=== PATIENT | male | born 1965 | race Caucasian/White ===

== ENCOUNTER → 2018-08-26 | Outpatient (CLI) | payer OTHER ==
--- NOTE | 2018-08-26 13:46 | REP ---
Chest two views HISTORY: Cough Comparison: 07/20/2015 There is elevation of the left hemidiaphragm. Linear density is present in the left lower lobe consistent with scar. The right lung is clear. The heart is normal in size. The pulmonary vasculature is normal in appearance. The bony structure is intact. IMPRESSION: No acute disease. Electronically Signed by Sergio Duarte MD 08/26/2018 01:37 P
== END ==
LOC: M LRY 13:20
PROVIDERS: ATTEND Nurse Practitioner Family
DX: R05 Cough (principal)
CPT/HCPCS: 71046; G0463

== ENCOUNTER → 2020-01-21 | Outpatient (CLI) | payer OTHER ==
--- NOTE | 2020-03-06 11:25 | REP ---
HISTORY: Kidney stone. COMPARISON: CT study 02/22/2012. 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 The left hemidiaphragm is quite elevated, somewhat more so than on the 2012 study, although not a new finding. Axial CT images demonstrate that the lung bases are clear as visualized. There is no evidence of pleural effusion or upper abdominal ascites. 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 No geoff diaphragmatic hernia. No focal hepatic or splenic lesion is seen. Neither organ is enlarged. No abnormality noted in the pancreas or in the gallbladder. There is a small accessory splenule near the pancreatic tail. Normal adrenal glands are seen bilaterally. There is an intrarenal 3 mm calculus at mid pole position left kidney. There is a second curvilinear 4 mm calculus lower pole left kidney as well. There is a phlebolith in the left pelvis. No ureteral calculus is seen. There is also a 3 mm calculus at the mid pole position of the right kidney. No hydronephrosis is seen on either side. No right ureteral calculus is seen. There is some spray artifact emanating from the right hip arthroplasty. There is a small subcentimeter cyst in the lower pole of the right kidney. No abdominal wall defect is seen. Small and large intestinal bowel loops are unremarkable. No bony destructive lesion is appreciated. IMPRESSION: Status post right hip arthroplasty. Bilateral intrarenal nephrolithiasis without evidence of hydronephrosis or ureteral stone. No bladder calculus is seen. Small cyst right kidney. Mildly prominent prostate. MTDD
== END ==
LOC: M RAD 07:30
PROVIDERS: ATTEND Urology
DX: N28.1 Cyst of kidney, acquired (principal); R97.20 Elevated prostate specific antigen [PSA]; Z96.641 Presence of right artificial hip joint
CPT/HCPCS: 36415; 74176; G0103

== ENCOUNTER → 2021-01-22 | Outpatient (CLI) | payer OTHER | LOC: M LABSMTC 12:49 | PROVIDERS: ATTEND Urology | DX: Z01.812 Encounter for preprocedural laboratory examination (principal); Z20.822 Contact with and (suspected) exposure to COVID-19 ==